=== PATIENT | female | born 1980 | race Caucasian/White ===

== ENCOUNTER 2017-11-05 20:35 | Emergency (ER) | payer OTHER ==
[~2017-11-05] VITALS: Ht 167.6 cm; Wt 65.8 kg
[~2017-11-05 20:35] MED LIST: ATIVAN1 M1; CLONAZEPAM1 MG; COMFORT PAC-CYC10 MG; TRAMADOL HCL7.5 GM
== END 2017-11-05 23:30 | disposition home or self-care (01) ==
LOC: ER 20:35
DX: M94.0 Chondrocostal junction syndrome [Tietze] (principal)

== ENCOUNTER → 2018-04-23 | Emergency (ER) | payer OTHER ==
[~2018-04-23] VITALS: Ht 170.2 cm; Wt 79.4 kg
[~2018-04-23] MED LIST changes: +RESTORIL7.5 MG
== END | disposition home or self-care (01) ==
LOC: ER 00:33
DX: N91.2 Amenorrhea, unspecified (principal); Z20.6 Contact with and (suspected) exposure to human immunodeficiency virus [HIV]

== ENCOUNTER → 2018-12-02 | Emergency (ER) | payer OTHER ==
[~2018-12-02] VITALS: Ht 172.7 cm; Wt 81.6 kg
[~2018-12-02] MED LIST changes: +PAXIL30 MG; +PROTONIX40 MG PO; +ZOFRAN ODT4 MG PO
== END | disposition home or self-care (01) ==
LOC: ER 01:24
DX: K21.9 Gastro-esophageal reflux disease without esophagitis (principal)

== ENCOUNTER 2020-01-31 00:24 | Emergency (ER) | payer OTHER ==
[~2020-01-31] VITALS: Ht 170.2 cm; Wt 77.1 kg
[2020-01-31] MEDS ORDERED: BACTRIM DS TAB1 EACH PO (03:04)
[2020-01-31] MEDS ORDERED: PYRIDIUM DS200 MG PO (03:04)
== END 2020-01-31 03:45 | disposition home or self-care (01) ==
LOC: ER 00:24
DX: N39.0 Urinary tract infection, site not specified (principal)